=== PATIENT | male | born 1995 | race Caucasian/White ===

== ENCOUNTER 2024-07-25 19:36 | Emergency (ER) | payer SELFPAY ==
[~2024-07-25] VITALS: Ht 167.6 cm; Wt 93.0 kg
[2024-07-25 19:54] VITALS: TEMP 36.9; O2SAT 99
[2024-07-25 20:16] LABS: CLARITY URINE CLEAR (CLEAR); COLOR URINE YELLOW (YELLOW); GLUCOSE URINE NEGATIVE (NEGATIVE); KETONES URINE TRACE (NEGATIVE); LEUKOCYTE ESTERASE URINE NEGATIVE (NEGATIVE); NITRITE URINE NEGATIVE (NEGATIVE); OCCULT BLOOD URINE NEGATIVE (NEGATIVE); PH URINE 6.5 (4.5-8.0); PROTEIN URINE NEGATIVE (NEGATIVE); SPECIFIC GRAVITY URINE 1.024 (1.005-1.030)
[2024-07-25 21:08] LABS: BASOPHILS % 0.5 % (0.0-2.0); EOSINOPHILS % 0.8 % (0.0-5.0); HEMATOCRIT. 44.2 % (42.0-52.0); LYMPHOCYTES % 14.4 % (20.0-50.0); MEAN CORPUSCULAR HEMOGLOBIN 31.1 pg (28.0-32.0); MEAN CORPUSCULAR HGB CONC 33.9 g/dL (31.0-37.0); MEAN CORPUSCULAR VOLUME 91.8 fL (80.0-94.0); MEAN PLATELET VOLUME 9.3 fl (7.4-10.4); MONOCYTES % 9.4 % (2.0-8.0); NEUTROPHILS % 74.9 % (40.0-76.0); PLATELET 290 x1000/uL (130-400); RED BLOOD CELL COUNT 4.82 mill/uL (4.7-6.1); RED CELL DISTRIBUTION WIDTH 12.7 % (11.6-14.6)
[2024-07-25 21:15] LABS: CHLORIDE 107 mEq/L (98-107); SODIUM 142 mEq/L (136-145)
[2024-07-25 21:16] LABS: CARBON DIOXIDE 29 mEq/L (21-32)
[2024-07-25 21:17] LABS: CALCIUM 9.7 mg/dL (8.7-10.4)
[2024-07-25 21:21] LABS: CREATININE 0.9 mg/dL (0.6-1.3); GLUCOSE 125 mg/dL (70-105)
[2024-07-25 21:22] LABS: UREA NITROGEN BLOOD 12 mg/dL (9-23)
[2024-07-25 21:23] LABS: ALANINE AMINOTRANSFERASE 32 IU/L (10-49); ALBUMIN 4.6 g/dL (3.2-4.8); ASPARTATE AMINOTRANSFERASE 20 IU/L (<34)
[2024-07-25 21:24] LABS: BILIRUBIN DIRECT < 0.1 mg/dL (<=3.0); BILIRUBIN TOTAL 0.4 mg/dL (0.1-1.0); PROTEIN TOTAL 7.9 g/dL (6.0-8.3)
[2024-07-25 21:31] LABS: TROPONIN I HIGH SENSITIVITY < 4 ng/L (3.0-53)
[2024-07-26] MEDS ORDERED: LIDO-53 TP (00:56)
[2024-07-26 01:06] VITALS: BP 144/87; PULSE 89; RESP 12; O2SAT 100
== END 2024-07-26 01:15 | disposition home or self-care (01) ==
LOC: ER 19:36
DX: R10.12 Left upper quadrant pain (principal)
CPT/HCPCS: 36415; 71045; 74176; 80048; 80076; 81003; 84484; 85025; 93005; 99285